=== PATIENT | female | born 1995 | race African-American/Black ===

== ENCOUNTER 2017-05-06 19:32 | Emergency (ER) | payer MEDICAID ==
[~2017-05-06] VITALS: Ht 160 cm; Wt 59.0 kg
[2017-05-06] MEDS ORDERED: NKM (20:53)
[2017-05-06 22:10] VITALS: BP 137/77
[2017-05-06 22:27] VITALS: BP 114/60
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
== END 2017-05-06 22:28 | disposition home or self-care (01) ==
LOC: EMR 21:11
DX: S02.2XXA Fracture of nasal bones, initial encounter for closed fracture (principal); Y04.2XXA Assault by strike against or bumped into by another person, initial encounter; Y93.9 Activity, unspecified; Y92.9 Unspecified place or not applicable
CPT/HCPCS: 70486; 99284

== ENCOUNTER 2018-02-23 13:05 | Emergency (ER) | payer MEDICAID ==
[~2018-02-23] VITALS: Ht 160 cm; Wt 59.0 kg
[~2018-02-23 13:05] MED LIST: NKM
[2018-02-23] MEDS ORDERED: Acetaminophen 500mg (ES) tab ORAL ONE (13:30)
--- NOTE | 2018-02-23 13:32 | Emergency Room Report ---
History of Present Illness General Chief Complaint: Vaginal Source: Patient Present Illness HPI 22-year-old female patient presents ER complaining of vaginal bleeding for the past month. Patient reports that she currently has Nexplanon control implant in arm and is scheduled to have it removed next month. Reports she has had for the past several years, states that she usually has 3 months without a menstrual period and then 3 weeks on menstrual period, states that current bleeding symptoms last longer than normal. denies dysuria, hematuria, vaginal discharge. Reports that she is currently using 5 pads or 9 panty liners a day. Denies passage of other material. Denies fainting or dizziness. Reports mild abdominal cramping, states this is normal during her menstrual periods. Denies fever, chest pain, shortness of breath, other acute symptoms at this time. denies , denies recent sexual activity. Reports normal bowel and bladder movements. Reports has appointment at the end of the month with OBGYN. Allergies: Coded Allergies: No Known Allergies (Unverified , 05/06/17) Patient History Past Medical History: see triage record Last Menstrual Period: on period Now: No : 1 Para: 0 Reviewed Nursing Documentation: PMH: Agreed; PSxH: Agreed Nursing Documentation-PMH Past Medical History: No Stated History Review of Systems All Other Systems: negative except mentioned in HPI Physical Exam Vital Signs Date Time Temp Pulse Resp B/P (MAP) Pulse Ox O2 Delivery O2 Flow Rate FiO2 02/23/18 13:08 98.5 88 14 115/58 99 Room Air 98.4 Sp02 EP Interpretation: reviewed, normal General Appearance: well appearing, no apparent distress, alert, GCS 15, non- toxic Head: normocephalic, atraumatic Eyes: bilateral eye normal inspection, bilateral eye PERRL ENT: hearing grossly normal, normal pharynx, no angioedema, normal voice, uvula midline, moist mucus membranes Neck: full range of motion Respiratory: lungs clear, normal breath sounds, no rhonchi, no respiratory distress, no accessory muscle use, no wheezing, speaking full sentences Cardiovascular #1: regular rate, rhythm, no edema Gastrointestinal: non tender, soft, no mass, non-distended, no guarding, no rebound, other - negative Rovsing, negative [place] Genitourinary: no CVA tenderness Neurologic: alert, oriented x3, responsive, motor strength/tone normal, sensory intact Psychiatric: mood/affect normal Skin: no rash Lymphatic: no adenopathy Medical Decision Making PA Attestation Dr. Chiang is my supervising Physician whom patient management has been discussed with. Diagnostic Impression: Primary Impression: Dysfunctional uterine bleeding ER Course Pt presents to ED c/o vaginal bleeding. DDX considered but are not limited to threatened , ectopic, UTI, septic , fibroids, dysfunctional uterine bleeding. Negative Rovsing, low suspicion for appendicitis, does not require CT at this time. VITAL SIGNS are WNL, patient is afebrile Ordered CBC, CMP, Type and Screen, UA, UCG, IV NS and pelvic US. Tylenol for pain control. ER COURSE: Patient resting comfortably, in no acute distress, nontoxic appearing. Patient reports pain symptoms resolved since onset. CBC and CMP unremarkable, H&H WNL, no anemia, patient has no circumoral pallor, cap refill less than 2 seconds. UA results shows many RBCs, no protein, likely due to menstrual bleeding, low suspicion for kidney damage. No signs of infection. Urine negative Blood type O+ Rh antibody negative discuss results with patient. Pelvic ultrasound shows no IUP, no torsion, free fluid noted per voice and data technician. Symptoms likely due to dysfunctional uterine bleeding due to Nexplanon. F/u with OBGYN for removal of implant. Patient states will call OBGYN tomorrow morning to reschedule appointment. Consult with Dr. Horner, recommended placing patient on Aygestin 5mg PO QDAY #10 to help control bleeding symptoms. Advised patient on possible side effects of use including DVT, do not smoke while taking medication. Recommend removal of implant. Followup with primary care provider and OBGYN. Take Tylenol for menstrual cramping symptoms. DISCHARGE: Rx provided for Aygestin At this time pt. is stable for d/c to home. At this time patient is resting comfortably, in no acute distress, nontoxic appearing, smiling and talking without difficulty. Will provide printed patient care instructions, and any necessary prescriptions. Patient instructed to follow with OBGYN for further treatment and referral as needed. Care plan and follow up instructions have been discussed with the patient prior to discharge. Patient reports understanding and agreement to treatment plan. Patient questions asked and answered. ER precautions given, patient instructed to return to ER immediately for any new or worsening of symptoms. - Please note that this Emergency Department Report was dictated using Last.[email or web address] mechanic technology software, occasionally this can lead to erroneous entry secondary to interpretation by the dictation equipment. Labs Test 02/23/18 13:23 02/23/18 13:33 Urine Color Pale yellow Urine Appearance Clear Urine pH 7 (4.5-8.0) Urine Specific [place] 1.010 (1.005-1.035) Urine Protein Negative (NEGATIVE) Urine Glucose (UA) Negative (NEGATIVE) Urine Ketones Negative (NEGATIVE) Urine Occult Blood 5+ (NEGATIVE) Urine Nitrite Negative (NEGATIVE) Urine Bilirubin Negative (NEGATIVE) Urine Urobilinogen Normal MG/DL (0.0-1.0) Urine Leukocyte Esterase 1+ (NEGATIVE) Urine RBC 30-40 /HPF (0 - 2) Urine WBC 2-4 /HPF (0 - 2) Urine Squamous Epithelial Cells Few /LPF (NONE/OCC) Urine Bacteria Occasional /HPF (NONE) Urine Trichomonas Occasional /HPF (NONE) Urine HCG, Qualitative Negative (NEGATIVE) White Blood Count 7.2 K/UL (4.8-10.8) Red Blood Count 4.20 M/UL (4.20-5.40) Hemoglobin 13.5 G/DL (12.0-16.0) Hematocrit 41.1 % (37.0-47.0) Mean Corpuscular Volume 98 FL (80-99) Mean Corpuscular Hemoglobin 32.2 PG (27.0-31.0) Mean Corpuscular Hemoglobin Concent 32.9 G/DL (32.0-36.0) Red Cell Distribution Width 11.6 % (11.6-14.8) Platelet Count 258 K/UL (150-450) Mean Platelet Volume 8.7 FL (6.5-10.1) Neutrophils (%) (Auto) 55.2 % (45.0-75.0) Lymphocytes (%) (Auto) 34.0 % (20.0-45.0) Monocytes (%) (Auto) 7.8 % (1.0-10.0) Eosinophils (%) (Auto) 0.9 % (0.0-3.0) Basophils (%) (Auto) 2.2 % (0.0-2.0) Sodium Level 139 MMOL/L (136-145) Potassium Level 3.7 MMOL/L (3.5-5.1) Chloride Level 103 MMOL/L (98-107) Carbon Dioxide Level 28 MMOL/L (21-32) Anion Gap 8 mmol/L (5-15) Blood Urea Nitrogen 14 mg/dL (7-18) Creatinine 1.0 MG/DL (0.55-1.30) Estimat Glomerular Filtration Rate > 60 mL/min (>60) Glucose Level 103 MG/DL (74-106) Calcium Level 9.4 MG/DL (8.5-10.1) Total Bilirubin 0.6 MG/DL (0.2-1.0) Aspartate Amino Transf (AST/SGOT) 20 U/L (15-37) Alanine Aminotransferase (ALT/SGPT) 23 U/L (12-78) Alkaline Phosphatase 47 U/L (46-116) Total Protein 8.2 G/DL (6.4-8.2) Albumin 4.3 G/DL (3.4-5.0) Globulin 3.9 g/dL Albumin/Globulin Ratio 1.1 (1.0-2.7) Lipase 92 U/L (73-393) CT/MRI/US Diagnostic Results CT/MRI/US Diagnostic Results : Imaging Test Ordered: Pelvic US Impression No torsion, no fibroids,no IUP, free fluid noted per voice and data technician Last Vital Signs Date Time Temp Pulse Resp B/P (MAP) Pulse Ox O2 Delivery O2 Flow Rate FiO2 02/23/18 13:08 98.5 88 14 115/58 99 Room Air 98.4 Disposition: HOME, SELF-CARE Condition: Stable Scripts Norethindrone Acetate (AYGESTIN) 5 Mg Tablet 5 MG PO DAILY for 10 Days, #10 TAB Prov: Esteban Bolanos 02/23/18 Patient Instructions: Dysfunctional Uterine Bleeding Additional Instructions: Followup with OBGYN in 1-2 days. Contact to schedule sooner appointment for removal of implant. Take medications as directed. Take Tylenol OTC for pain symptoms. Patient questions asked and answered. ER precautions given, patient instructed to return to ER immediately for any new or worsening of symptoms including but not limited to chest pain, SOB, intractable vomiting, profuse vaginal bleeding, abdominal pain. Blood type O positive Esteban Bolanos Feb 23, 2018 13:32
[2018-02-23 13:43] LABS: APPEARANCE,URINE CLEAR; BILIRUBIN, URINE NEGATIVE (NEGATIVE); COLOR,URINE PALE YELLOW; GLUCOSE, URINE (UA) NEGATIVE (NEGATIVE); KETONES,URINE NEGATIVE (NEGATIVE); LEUKOCYTE ESTERASE ,URINE 1+ (NEGATIVE); NITRITE,URINE NEGATIVE (NEGATIVE); PH,URINE 7 (4.5-8.0); PROTEIN,URINE NEGATIVE (NEGATIVE); UROBILINOGEN,URINE NORMAL MG/DL (0.0-1.0)
[2018-02-23 13:47] VITALS: BP 115/58
[2018-02-23 13:48] LABS: BASOPHILS % (AUTO) 2.2 % (0.0-2.0); EOSINOPHILS % (AUTO) 0.9 % (0.0-3.0); HEMATOCRIT 41.1 % (37.0-47.0); HEMOGLOBIN 13.5 G/DL (12.0-16.0); MEAN CORPUSCULAR VOLUME 98 FL (80-99); MONOCYTES % (AUTO) 7.8 % (1.0-10.0); NEUTROPHILS % (AUTO) 55.2 % (45.0-75.0); PLATELET COUNT 258 K/UL (150-450); RED CELL DISTRIBUTION WIDTH 11.6 % (11.6-14.8); WHITE BLOOD COUNT 7.2 K/UL (4.8-10.8)
[2018-02-23 14:01] LABS: ANION GAP 8 mmol/L (5-15); BLOOD UREA NITROGEN 14 mg/dL (7-18); CALCIUM 9.4 MG/DL (8.5-10.1); CARBON DIOXIDE 28 MMOL/L (21-32); CHLORIDE 103 MMOL/L (98-107); POTASSIUM 3.7 MMOL/L (3.5-5.1); SODIUM 139 MMOL/L (136-145)
[2018-02-23 14:06] LABS: ALANINE AMINOTRANSFERASE 23 U/L (12-78); ALBUMIN 4.3 G/DL (3.4-5.0); ALBUMIN/GLOBULIN RATIO 1.1 (1.0-2.7); ALKALINE PHOSPHATASE 47 U/L (46-116); ASPARTATE AMINO TRANSFERASE 20 U/L (15-37); BILIRUBIN,TOTAL 0.6 MG/DL (0.2-1.0)
[2018-02-23] MEDS ORDERED: AYGESTIN5 MG PO (14:40)
[2018-02-23 15:16] VITALS: BP 119/63
--- NOTE | 2018-02-24 09:48 | Diagnostic Imaging Report ---
Indication: Pelvic bleeding x7 weeks, pain Technique: Transabdominal and transvaginal images Comparison: none Findings: Uterus measures 8.3 cm in length by 3.7 cm AP. The endometrium is 3 mm thick. No myometrial abnormality. Right ovary measures 3.8 cm in length. Left ovary measures 4.1 cm length. No adnexal mass. There is small amount of free cul-de-sac fluid Impression: Essentially unremarkable exam Small amount of free pelvic fluid, most likely physiologic
== END 2018-02-23 15:29 | disposition home or self-care (01) ==
LOC: EMR 13:38
DX: N93.8 Other specified abnormal uterine and vaginal bleeding (principal)
CPT/HCPCS: 36415; 76830; 76856; 80053; 81003; 81025; 83690; 85025; 86850; 86900; 86901; 96361; 96374; 99284; J2405

== ENCOUNTER 2019-07-08 20:59 | Emergency (ER) | payer SELFPAY ==
[~2019-07-08] VITALS: Ht 160 cm; Wt 56.7 kg
[~2019-07-08 20:59] MED LIST changes: +AYGESTIN5 MG PO
[2019-07-08 21:08] VITALS: BP 120/72
--- NOTE | 2019-07-08 21:09 | NUR ---
ED Nurse Note: PT walked in to ED for C/o abdominal pain x 3 days. pt also rachael been having back pain since last night. Pt reports having flu like symptoms as well such as coughing and nasal congestion.
--- NOTE | 2019-07-08 21:30 | NUR ---
ED Nurse Note: urine sample sent down to lab
--- NOTE | 2019-07-08 21:37 | NUR ---
ED Nurse Note: pt refused to have blood sample drawn and have IV medication. ERMD made aware.
--- NOTE | 2019-07-08 21:58 | Emergency Room Report ---
History of Present Illness General Chief Complaint: General Complaint Source: Patient Present Illness HPI 23-year-old female who presents with abdominal pain and no bowel movements for 3 days. She now states that she has lower back pain she is unable to have bowel movements. She did not try any medications. She states she had a recent cold with nasal congestion and generalized malaise for the last week. She did not take any medication for her symptoms. She is had no abdominal surgeries. She has no urinary complaints. She denies any vaginal bleeding or discharge. Allergies: Coded Allergies: No Known Allergies (Unverified , 05/06/17) Patient History Now: No Nursing Documentation-[facility] Past Medical History: No Stated History Review of Systems Constitutional: Denies: chills, fever Respiratory: Denies: cough, shortness of breath Cardiovascular: Denies: chest pain, palpitations Gastrointestinal: Reports: abdominal pain, constipation; Denies: diarrhea, vomiting Genitourinary: Denies: hematuria, pain Musculoskeletal: Denies: joint swelling Skin: Denies: rash, lesions Neurological: Denies: headache, dizziness Physical Exam Vital Signs Date Time Temp Pulse Resp B/P (MAP) Pulse Ox O2 Delivery O2 Flow Rate FiO2 07/08/19 21:04 98.2 97 22 120/69 (86) 99 Room Air Sp02 EP Interpretation: reviewed General Appearance: well appearing, no apparent distress, non-toxic Head: normocephalic, atraumatic Eyes: bilateral eye normal inspection ENT: hearing grossly normal, EOM grossly intact, moist mucus membranes Neck: supple Respiratory: lungs clear, normal breath sounds, no respiratory distress, speaking full sentences Cardiovascular #1: regular rate, rhythm, normal capillary refill Cardiovascular #2: 2+ radial (R), 2+ radial (L) Gastrointestinal: soft, non-distended Rectal: deferred Musculoskeletal: moves extm spontaneously, no lower extremity edema Neurologic: grossly normal Psychiatric: mood/affect normal Skin: warm/dry, normal turgor Medical Decision Making Diagnostic Impression: Primary Impression: Constipation Additional Impression: Abdominal pain ER Course 23-year-old female presents with abdominal pain and constipation. Patient has no abdominal tenderness. She has no urinary complaints or vaginal complaints. Recommended pursuing blood testing to the patient's hydration status and performing abdominal x-ray. Patient states she does not want any testing at this time. She just wants medication to help her have bowel movements. She has not tried any laxatives or any medications in the past. Recommended taking MiraLAX and written prescription for patient to fill. Patient recommended to see clinic or primary care doctor in 2 to 3 days for reevaluation. Patient advised to return to emergency room if any new symptoms Laboratory Tests Test 07/08/19 21:08 Urine Color Yellow Urine Appearance Clear Urine pH 8 (4.5-8.0) Urine Specific [place] 1.015 (1.005-1.035) Urine Protein 2+ (NEGATIVE) H Urine Glucose (UA) Negative (NEGATIVE) Urine Ketones Negative (NEGATIVE) Urine Blood Negative (NEGATIVE) Urine Nitrite Negative (NEGATIVE) Urine Bilirubin Negative (NEGATIVE) Urine Urobilinogen Normal MG/DL (0.0-1.0) Urine Leukocyte Esterase 1+ (NEGATIVE) H Urine RBC Pending Urine WBC Pending Urine Squamous Epithelial Cells Pending Urine Bacteria Pending Urine HCG, Qualitative Pending Lab Results Impression Urinalysis noted mild leukocyte esterase but no nitrates. Not consistent with urinary tract infection at this time as patient has no dysuria symptoms Reevaluation Time: 22:46 Last Vital Signs Date Time Temp Pulse Resp B/P (MAP) Pulse Ox O2 Delivery O2 Flow Rate FiO2 07/08/19 21:08 98.2 95 22 120/72 99 Room Air Status: improved Disposition: HOME, SELF-CARE Condition: Stable Scripts Polyethylene Glycol 3350* (MIRALAX*) 17 Gm Powd.pack 17 GM ORAL DAILY for 10 Days, #10 PACKET Prov: Deniz Hammonds M.D. 07/08/19 Patient Instructions: Constipation, Adult Additional Instructions: Please follow-up with primary care doctor in 2 to 3 days for reevaluation. Return to emergency room if abdominal pain not improving or any new symptoms arise. Deniz Hammonds M.D. Jul 08, 2019 21:58
[2019-07-08 22:43] LABS: APPEARANCE,URINE CLEAR; BILIRUBIN, URINE NEGATIVE (NEGATIVE); GLUCOSE, URINE (UA) NEGATIVE (NEGATIVE); KETONES,URINE NEGATIVE (NEGATIVE); LEUKOCYTE ESTERASE ,URINE 1+ (NEGATIVE); NITRITE,URINE NEGATIVE (NEGATIVE); PH,URINE 8 (4.5-8.0); PROTEIN,URINE 2+ (NEGATIVE); UROBILINOGEN,URINE NORMAL MG/DL (0.0-1.0)
[2019-07-08 22:44] LABS: COLOR,URINE YELLOW
[2019-07-08] MEDS ORDERED: MIRALAX17 G2 ORAL (22:47)
[2019-07-08 22:52] VITALS: BP 128/72
--- NOTE | 2019-07-08 22:52 | NUR ---
ER DISCHARGE NOTE: Patient is cleared to be discharged per ERMD, pt is aox4, on room air, with stable vital signs. pt was given dc and prescription instructions, pt was able to verbalize understanding, pt id band removed without complications. pt is able to ambulate with steady gait. pt took all belongings.
== END 2019-07-08 22:52 | disposition home or self-care (01) ==
LOC: EMR 21:25
DX: K59.00 Constipation, unspecified (principal); M54.5 Low back pain
CPT/HCPCS: 81003; 81025; 99282

== ENCOUNTER 2019-12-18 08:00 | Emergency (ER) | payer SELFPAY ==
[~2019-12-18] VITALS: Ht 160 cm; Wt 56.7 kg
[~2019-12-18 08:00] MED LIST changes: +MIRALAX17 G2 ORAL
[2019-12-18 08:12] VITALS: BP 119/65
--- NOTE | 2019-12-18 08:17 | Emergency Room Report ---
History of Present Illness General Chief Complaint: Laceration Source: Patient Present Illness HPI 24-year-old female presents with laceration left upper eyebrow, fell last night , no LOC, no pain, no aggravating alleviating factors severity is nonexistent, patient presents for evaluation Allergies: Coded Allergies: No Known Allergies (Unverified , 05/06/17) COVID-19 Screening Contact w/high risk pt: No Recent Travel to affected area: No Experienced COVID-19 symptoms?: No COVID-19 Testing performed DISPENSARY ATTENDANT: No Patient History Past Medical History: see triage record Last Menstrual Period: 12/04/19 Now: No Reviewed Nursing Documentation: PMH: Agreed; PSxH: Agreed Nursing Documentation-PMH Past Medical History: No Stated History Review of Systems All Other Systems: negative except mentioned in HPI Physical Exam Vital Signs Date Time Temp Pulse Resp B/P (MAP) Pulse Ox O2 Delivery O2 Flow Rate FiO2 12/18/19 08:05 98.2 79 16 119/65 (83) 99 Room Air General Appearance: well appearing, no apparent distress Head: normocephalic, other - Laceration above left eyebrow measuring less than half centimeter healing by secondary intention Eyes: bilateral eye PERRL, bilateral eye EOMI ENT: hearing grossly normal, normal voice Neck: full range of motion, supple Respiratory: no respiratory distress, speaking full sentences Neurologic: alert, normal gait Psychiatric: mood/affect normal Skin: no rash Medical Decision Making Diagnostic Impression: Primary Impression: Laceration ER Course 24-year-old female presents with left upper eyebrow laceration already healing, most consistent with an avulsion of skin, already healing by secondary intention. No indications for Dermabond or sutures. Patient with an up-to- date tetanus Last Vital Signs Date Time Temp Pulse Resp B/P (MAP) Pulse Ox O2 Delivery O2 Flow Rate FiO2 12/18/19 08:05 98.2 79 16 119/65 (83) 99 Room Air Condition: Stable Referrals: NOT CHOSEN ELVIN/,REFERRING (PCP) [facility] Enrique Johnson Comp. [facility] Patient Instructions: Nonsutured Laceration Care Bashir Black MD December 18, 2019 08:17
[2019-12-18] MEDS ORDERED: Bacitracin Oint UD TOPIC ONE ×2 (08:19→08:30)
--- NOTE | 2019-12-18 08:25 | NUR ---
ED Nurse Note: Pt cleared by health care Provider for discharge. DC instructions was given and explained to pt and verbalized understanding of teachings. All medical deviecs such as ID band removed. Pt is AAO x4, ambulatory and left with all personal belongings.
[2019-12-18 08:27] VITALS: BP 119/65
== END 2019-12-18 08:29 | disposition home or self-care (01) ==
LOC: EMR 08:08
DX: S01.112A Laceration without foreign body of left eyelid and periocular area, initial encounter (principal); X58.XXXA Exposure to other specified factors, initial encounter; Y93.9 Activity, unspecified; Y92.9 Unspecified place or not applicable
CPT/HCPCS: 99282